=== PATIENT | female | born 1980 | race Caucasian/White ===

== ENCOUNTER 2020-02-16 09:01 | Outpatient (CLI) | payer OTHER, SELFPAY ==
--- NOTE | ~2020-02-16 | MM_ITS ---
EXAMINATION: MM screening [facility] BI w ammy HISTORY: Screening mammogram TECHNIQUE: Craniocaudal and mediolateral oblique 3-D tomosynthesis images were obtained and synthetic 2-D images were generated. CAD analysis was submitted and interpreted. COMPARISON: 11/27/2018 bilateral digital screening mammogram BREAST PARENCHYMAL COMPOSITION: The breasts are almost entirely fatty. FINDINGS: There is no evidence of suspicious mass, calcification, or architectural distortion to sugg est malignancy in either breast. There has been no suspicious interval change. IMPRESSION: 1. No mammographic evidence of malignancy. 2. Recommend routine screening mammography in one year. BI-RADS Category 1: Negative Reviewed, dictated and finalized at location A.
== END 2020-02-16 09:02 | disposition home or self-care (01) ==
LOC: ANHIMG 09:05
PROVIDERS: PCP Family Medicine; Visit Provider Obstetrics & Gynecology
DX: Z12.31 Encounter for screening mammogram for malignant neoplasm of breast (principal)
CPT/HCPCS: 77063; 77067

== ENCOUNTER 2021-05-10 15:42 | Outpatient (CLI) | payer OTHER, BC, SELFPAY ==
--- NOTE | ~2021-05-10 | MM_ITS ---
EXAMINATION: MM screening [facility] BI w ammy HISTORY: Screening TECHNIQUE: Craniocaudal and mediolateral oblique 3-D tomosynthesis images were obtained and synthetic 2-D images were generated. CAD analysis was submitted and interpreted. COMPARISON: Comparison to multiple prior studies sequentially, with oldest reviewed study dated 11/27. BREAST PARENCHYMAL COMPOSITION: There are scattered areas of fibroglandular density. FINDINGS: There is no evidence of suspicious mass, calcification, or architectural distortion to sugg est malignancy in either breast. There has been no suspicious interval change. IMPRESSION: 1. No mammographic evidence of malignancy. 2. Recommend routine screening mammography in one year. BI-RADS Category 1: Negative Reviewed, dictated and finalized at location A.
== END 2021-05-10 15:43 | disposition home or self-care (01) ==
PROVIDERS: PCP Family Medicine; Visit Provider Obstetrics & Gynecology
DX: Z12.31 Encounter for screening mammogram for malignant neoplasm of breast (principal)
CPT/HCPCS: 77063; 77067

== ENCOUNTER 2022-08-12 08:50 | Outpatient (CLI) | payer OTHER, SELFPAY ==
--- NOTE | ~2022-08-12 | MM_ITS ---
EXAMINATION: MM screening [facility] BI w ammy HISTORY: Screening mammogram TECHNIQUE: Craniocaudal and mediolateral oblique 3-D tomosynthesis images were obtained and synthetic 2-D images were generated. CAD analysis was submitted and interpreted. COMPARISON: 05/10/2021, 02/16/2020, 11/27/2018 BREAST PARENCHYMAL COMPOSITION: The breasts are almost entirely fatty. FINDINGS: There is no suspicious mass, calcification, or architectural distortion to suggest malignan cy in either breast. There has been no suspicious interval change. IMPRESSION: 1. No mammographic evidence of malignancy. 2. Recommend routine screening mammography in one year. BI-RADS Category 1: Negative Reviewed, dictated and finalized at location A.
== END 2022-08-12 08:51 | disposition home or self-care (01) ==
LOC: ANHIMG 08:51
PROVIDERS: PCP Family Medicine; Visit Provider Obstetrics & Gynecology
DX: Z12.31 Encounter for screening mammogram for malignant neoplasm of breast (principal)
CPT/HCPCS: 77063; 77067

== ENCOUNTER 2023-12-05 14:22 | Outpatient (CLI) | payer OTHER, SELFPAY ==
--- NOTE | ~2023-12-05 | MM_ITS ---
EXAMINATION: MM screening [facility] BI w ammy HISTORY: Screening mammogram TECHNIQUE: Craniocaudal and mediolateral oblique 3-D tomosynthesis images were obtained and synthetic 2-D images were generated. CAD analysis was submitted and interpreted. COMPARISON: 08/12/2022, 05/10/2021, 02/16/2020 BREAST PARENCHYMAL COMPOSITION: The breasts are almost entirely fatty. FINDINGS: No suspicious mass, calcification, or architectural distortion are identified in either hema ast to suggest malignancy. There has been no suspicious interval change. IMPRESSION: 1. No mammographic evidence of malignancy. 2. Recommend routine screening mammography in one year. BI-RADS Category 1: Negative Reviewed, dictated and finalized at location A. [employer]
== END 2023-12-05 14:23 | disposition home or self-care (01) ==
LOC: ANHIMG 14:40
PROVIDERS: PCP Family Medicine; Visit Provider Obstetrics & Gynecology
DX: Z12.31 Encounter for screening mammogram for malignant neoplasm of breast (principal)
CPT/HCPCS: 77063; 77067

== ENCOUNTER 2024-12-28 14:59 | Outpatient (CLI) | payer OTHER, SELFPAY ==
--- NOTE | ~2024-12-28 | MM_ITS ---
EXAMINATION: MM screening anca BI w ammy HISTORY: Screening TECHNIQUE: Craniocaudal and mediolateral oblique 3-D tomosynthesis images were obtained and synthetic 2-D images were generated. CAD analysis was submitted and interpreted. COMPARISON: Comparison to multiple prior studies sequentially, with oldest reviewed study dated 11/27. BREAST PARENCHYMAL COMPOSITION: Not Dense: The breasts are almost entirely fatty. FINDINGS: There is no evidence of suspicious mass, calcification, or architectural distortion to sugg est malignancy in either breast. There has been no suspicious interval change. IMPRESSION: 1. No mammographic evidence of malignancy. 2. Recommend routine screening mammography in one year. BI-RADS Category 1: Negative Reviewed, dictated and finalized at location B. [employer]
--- OUTSIDE RECORDS SUMMARY | 2024-12-28 15:04 | XMS_ITS | Data Portability ---
Author Organization [facility] MiName Nm in Office Address [address] [place] [address] Assessment Encounter Date Assessment Date Assessment LastModified by Organization Details LastModified Time 10/26/2024 10/26/2024 I spent 35 minutes of [id number] counselling and care coordination time with the patient. This includes reviewing medical records (medical, surgical, family and social history); updating medication and allergy information in the electronic health record; and ordering labs, medications, and education materials to continue patient care. [email or web address] Not available 10/26/2024 09:55:54 11/30/2024 11/30/2024 I spent 19 minutes of xozh-it-iuwu counselling and care coordination time with the patient. This includes reviewing medical records (medical, surgical, family and social history); updating medication and allergy information in the electronic health record; and ordering labs, medications, and education materials to continue patient care. [email or web address] Not available 11/25/2024 14:57:46 Plan of Treatment Reminders Order Date Submit Date Provider Last Modified By Organization Details Last Modified Time Details Appointments [id number] 2024 09:00A Usama FREDERICK NP Not available Not available Not available Lab None recorded. Referral None recorded. Procedures None recorded. Surgeries None recorded. Imaging None recorded. Medication Orders Bundle B: 0.5 mL/week - [facility] 2024 025 [facility] (Clinic Pay Unmonitored Fax), [id number] [place] [address], [id number], 11/30/2024 11:55:20 Zepbound 2.5 mg/0.5 mL subcutane ous pen injector 2023 025 [id number], [address], [place], [place], [id number], 11/30/2024 11:31:38 Patient TargetsNo targets recorded. Patient Instructions Encounter Date Encounter Id Patient Instructions Last Modified By Organization Details Last Modified Time 10/26/2024 [id number] [facility] FAQs Not avail able 10/26/2024 12:22:14 Any requested follow-up visits are listed below in the Plan of Care section. Go directly to the [facility] mutuel clerk at [email or web address] to book a time. [email or web address] Not available 10/26/2024 09:51:43 It was a pleasur e to meet you and begin to collaborate on your care! Looking forward to seeing you again soon - and please do not hesitate to reach out with any questions. We focused on these items today: 1. WEIGHT MEDICATION Please see changes to your medication plan below LABS Upload labs upon availability RESOURCES Here is some more information about what we discussed: It was a pleasure to meet with you today! We discussed your health concerns related to your weight and hypertension. -------- Your Care Plan -------- Together, we decided that you would: - Consider the option of once-weekly injectables for weight loss. These medications are known to be quite successful in the detention and can help you lose a significant amount of weight. However, they can cause side effects such as nausea, upset stomach, diarrhea, constipation, and occasionally reflux. We will check with your insurance to see if they cover these medications. If not, there is an option to get a compounded version of the medication from a pharmacy in [place] called [facility]. The first month of this medication out of pocket is about $180 with shipping, and the second and third months are around $250 out of pocket. - Consider the option of Metformin for weight loss. Metformin is used for pre-diabetes, diabetes, insulin resistance, and it's used off-label for weight loss. We would start with the lowest dose of 500mg once a day for the first week. If you tolerate that, you can increase it to twice a day before meals. The most common side effect of Metformin is stomach upset or nausea. Metformin works by improving how your body responds to insulin, reducing the amount of glucose your liver releases, and decreasing insulin resistance. - If you decide to take Metformin, it is also suggested that you take a vitamin B12 supplement. - Scheduled a follow-up appointment for November 30 at 10:30 AM to discuss how the chosen treatment is working for you and to make any necessary adjustments. Please carefully review the care plan we have decided upon, specific information regarding your medication, and important details about your treatment detailed above. Thank you for trusting us with your care! What is Metformin? Metformin works by improving how your body responds to insulin, reducing the amount of glucose your liver releases, and decreasing insulin resistance. Vitamin B12 Supplementation Metformin can lower the absorption of vitamin B12 in your small intestines. This can sometimes, but not always, lead to vitamin B12 deficiency We recommend including plenty of foods rich in vitamin B12 in your diet, such as eggs, beef, salmon, chicken, and nutritional yeast; and/or taking supplemental B12 may help to prevent a deficiency (especially if you're vegetarian, vegan, or predominantly plant-based, as B12 is most commonly found in animal products). Side effects Gastrointestinal Issues: The most common side effects include a metallic taste, mild nausea, abdominal discomfort, and diarrhea. These are usually mild and can be minimized by taking metformin with food. A rare but serious condition called metformin-associated lactic acidosis can occur, especially if you re severely dehydrated. Symptoms include stomach discomfort, decreased appetite, rapid breathing, muscle pain, and unusual tiredness. Staying hydrated is crucial, and you should stop taking metformin if you experience severe vomiting or diarrhea. Avoid binge drinking as it can increase the risk of lactic acidosis. Tips for Taking Semaglutide Note: WEGOVY and OZEMPIC are brand names for SEMAGLUTIDE -You can take Semaglutide with or without food -If you need to change the day of the week, you may do so as long as your last dose of semaglutide was given 2 or more days before -If you take too much semaglutide, you may have severe nausea, severe vomiting, and severe low blood sugar. This is why it is critical to follow the dosing regimen prescribed by your [facility] Expert. What to Do if You Miss a Dose -If you miss a dose, and the next scheduled dose is MORE than 2 days away (48 hours), take the missed dose as soon as possible -If you miss a dose, and the next scheduled dose is LESS than 2 days away (48 hours), do not administer the dose. Take your next dose on the regularly scheduled day -If you miss your semaglutide dose for more than 2 weeks, take the next dose on the regularly scheduled day or message your [facility] Expert to talk about how to restart your treatment The most common side effects may include: nausea, diarrhea, constipation, headache, abdominal pain, tiredness, upset stomach, dizziness, feeling bloated, belching, gas, stomach flu, heartburn. The most common side effect is nausea. It tends to go away on its own, but here are some tips to help you manage nausea associated with semaglutide: -Eat bland, low-fat foods, like crackers, toast, and rice -Eat foods that contain water, like soups and gelatin -Avoid lying down after you eat -Go outdoors for fresh air -Eat more slowly Important Safety Information Semaglutide/Wegovy/O zempic may cause serious side effects, including: -Inflammation of your pancreas (pancreatitis). Stop using this medication and call your [facility] healthcare provider right away if you have severe pain in your stomach area (abdomen) that will not go away, with or without vomiting. You may feel the pain from your abdomen to your back. -Gallbladder problems. May cause gallbladder problems, including gallstones. Some gallstones may need surgery. Seek urgent medical care if you have symptoms, such as pain in your upper stomach (abdomen), fever, yellowing of the skin or eyes (jaundice), or yaniv-colored stools. -Increased risk of low blood sugar (hypoglycemia) in patients with type 2 diabetes, especially those who also take medicines for type 2 diabetes such as sulfonylureas or insulin. This can be both a serious and common side effect. Talk to your [facility] healthcare provider about how to recognize and treat low blood sugar and check your blood sugar before you start and while you take this medication. Signs and symptoms of low blood sugar may include dizziness or light-headedness, blurred vision, anxiety, irritability or mood changes, sweating, slurred speech, hunger, confusion or drowsiness, shakiness, weakness, headache, fast heartbeat, or feeling jittery. -Kidney problems (kidney failure). In people who have kidney problems, diarrhea, nausea, and vomiting may cause a loss of fluids (dehydration) which may cause kidney problems to get worse. It is important for you to drink fluids to help reduce your chance of dehydration. -Serious allergic reactions. Stop using this medication and get medical help right away, if you have any symptoms of a serious allergic reaction, including swelling of your face, lips, tongue, or throat; problems breathing or swallowing; severe rash or itching; fainting or feeling dizzy; or very rapid heartbeat. -Change in vision in patients with type 2 diabetes. Tell your [facility] provider or seek immediate medical attention if you have changes in vision during treatment while on this medication. -Increased heart rate. This medication can increase your heart rate while you are at rest. Tell your [facility] healthcare provider if you feel your heart racing or pounding in your chest and it lasts for several minutes. -Depression or thoughts of suicide. You should pay attention to any mental changes, especially sudden changes in your mood, behaviors, thoughts, or feelings. Call your [facility] healthcare provider right away if you have any mental changes that are new, worse or worry you. If you EVER have any thoughts of self harm or thoughts of harming someone else, please go to the closest emergency department or call 911. You can also call / text 985 [email or web address] org/?utm_source=atif bynum&utm_medium=web&ut m_campaign=onebox -: May cause harm. If you become , discontinue semaglutide. Discontinue semaglutide at least 2 months before a planned . While on semaglutide please use a control method to prevent if needed. Tips for Taking Tirzepatide Note: MOUNJARO and ZEPBOUND are brand names for TIRZEPATIDE -You can take Tirzepatide(Mounjaro /Zepbound) with or without food -If you need to change the day of the week, you may do so as long as your last dose was given 2 or more days before -If you take too much tirzepatide, you may have severe nausea, severe vomiting, and severe low blood sugar. This is why it is critical to follow the dosing regimen prescribed by your [facility] Weight Loss Expert. What to Do if You Miss a Dose -If you miss a dose, and the next scheduled dose is MORE than 2 days away (48 hours), take the missed dose as soon as possible -If you miss a dose, and the next scheduled dose is LESS than 2 days away (48 hours), do not administer the dose. Take your next dose on the regularly scheduled day -If you miss your tirzepatide dose for more than 2 weeks, take the next dose on the regularly scheduled day or message your [facility] Expert to talk about how to restart your treatment The most common side effects may include: nausea, diarrhea, constipation, headache, abdominal pain, tiredness, upset stomach, dizziness, feeling bloated, belching, gas, stomach flu, heartburn. The most common side effect is nausea. It tends to go away on its own, but here are some tips to help you manage nausea associated with this medication: -Eat bland, low-fat foods, like crackers, toast, and rice -Eat foods that contain water, like soups and gelatin -Avoid lying down after you eat -Go outdoors for fresh air -Eat more slowly Important Safety Information Tirzepatide/Mounjaro /Zepbound may cause serious side effects, including: -Inflammation of your pancreas (pancreatitis). Stop using this medication and call your [facility] healthcare provider right away if you have severe pain in your stomach area (abdomen) that will not go away, with or without vomiting. You may feel the pain from your abdomen to your back. -Gallbladder problems. May cause gallbladder problems, including gallstones. Some gallstones may need surgery. Call your [facility] provider if you have symptoms, such as pain in your upper stomach (abdomen), fever, yellowing of the skin or eyes (jaundice), or yaniv-colored stools. -Increased risk of low blood sugar (hypoglycemia) in patients with type 2 diabetes, especially those who also take medicines for type 2 diabetes such as sulfonylureas or insulin. This can be both a serious and common side effect. Talk to your [facility] healthcare provider about how to recognize and treat low blood sugar and check your blood sugar before you start and while you take this medication. Signs and symptoms of low blood sugar may include dizziness or light-headedness, blurred vision, anxiety, irritability or mood changes, sweating, slurred speech, hunger, confusion or drowsiness, shakiness, weakness, headache, fast heartbeat, or feeling jittery. -Kidney problems (kidney failure). In people who have kidney problems, diarrhea, nausea, and vomiting may cause a loss of fluids (dehydration) which may cause kidney problems to get worse. It is important for you to drink fluids to help reduce your chance of dehydration. -Serious allergic reactions. Stop using this medication and get medical help right away, if you have any symptoms of a serious allergic reaction, including swelling of your face, lips, tongue, or throat; problems breathing or swallowing; severe rash or itching; fainting or feeling dizzy; or very rapid heartbeat. -Change in vision in patients with type 2 diabetes. Tell your [facility] healthcare provider if you have changes in vision during treatment while on this medication. -Increased heart rate. This medication can increase your heart rate while you are at rest. Tell your [facility] provider if you feel your heart racing or pounding in your chest and it lasts for several minutes. -Depression or thoughts of suicide. You should pay attention to any mental changes, especially sudden changes in your mood, behaviors, thoughts, or feelings. Call your [facility] healthcare provider right away if you have any mental changes that are new, worse or worry you. If you EVER have any thoughts of self harm or thoughts of harming someone else, please go to the closest emergency department or call 911. You can also call / text [phone] [email or web address] org/?utm_source=atif bynum&utm_medium=web&ut m_campaign=onebox Diet: Timing: Try intermittent fasting, eating during daylight hours over an 8 hour window. For example, eat between 10 a.m and 6 p.m. Try to finish your last meal at least 3-4 hours before bedtime to fully digest. Avoid alcohol and sugary sweets close to bedtime as it can lead to sleep disruption. Helpful food choices: - Choose complex carbohydrates over simple carbs to help avoid rapid spikes in blood sugar that may contribute to feelings of anxiety, as well as weight gain and metabolic disease. - A plant-based diet high in vegetables and fruits can help maintain healthy weight and assist in management of menopausal symptoms. - Aim to eat 20-25 grams of protein with each meal. - Twice weekly consume fatty fish like salmon or sardines. These types of fish contain healthy omega-3 fatty acids, which can provide benefits to mood, reduce inflammation, and improve brain and cardiovascular health. - Try to avoid refined sugars and high-glycemic foods to help balance mood and improve sleep. - Avoid caffeine, spicy foods, hot drinks, alcohol and sugar, which are known triggers for hot flashes and night sweats. Exercise: - Aim for regular exercise with 30 minutes of moderate intensity activity on at least 5 days of the week. - Incorporate weight training into your exercise routine to increase strength, improve metabolism, and maintain bone health. - Avoid exercise close to bedtime so it does not interfere with sleep. For more information regarding common questions about weight in midlife, watch this short video from our Director Process Improvement, . You will need to copy the following link into your browser to access the video: [email or web address] Of course, if you have further questions after watching, please reach out and I will be happy to support you. Schedule a followup visit through the [facility] mutuel clerk at [email or web address] Not available 10/26/2024 12:22:13 11/30/2024 [id number] The [facility] FAQs [email or web address] Not avail able 11/30/2024 11:40:43 Any requested follow-up visits are listed below in the Plan of Care section. Go directly to the [facility] mutuel clerk at [email or web address] to book a time. [email or web address] Not available 11/25/2024 14:57:20 It was great to see you again! As always, do not hesitate to reach out with any questions. We focused on these items today: 1. WEIGHT MEDICATION Please see changes to your medication plan below LABS Upload labs upon availability RESOURCES Here is some more information about what we discussed: It was a pleasure to meet with you today! We discussed your health concerns related to weight loss and your current treatment with semaglutide compound. -------- Your Care Plan -------- Together, we decided that you would: - Continue taking semaglutide at the current dosage of 25 units. You have reported no significant side effects and have seen some progress with your weight loss goals. - Consider increasing the dosage to 50 units in the future if you feel it's necessary. This decision is entirely up to you and can be discussed further in our next appointment. - Aim for a high protein, high fiber diet. This type of diet can help amplify your success with weight loss. - Increase your activity level. Regular physical activity can help boost your weight loss efforts. - Scheduled a follow-up appointment for January 04 at 11 AM Central Time. During this appointment, we can discuss your progress, any potential side effects, and whether you'd like to adjust your dosage. - Share any recent blood work you have had done. This will help us monitor your overall health and ensure the medication is working effectively. Please remember that weight loss is a gradual process and it's important to be patient with yourself. It's great to hear that you're feeling more comfortable and able to breathe easier. These are positive signs that you're making progress towards your goal of being under 200 pounds. If you experience any severe side effects or if your symptoms worsen, please seek immediate medical attention. If you have any questions or concerns about your treatment, don't hesitate to reach out to us. Please carefully review the care plan we have decided upon, specific information regarding your medication, and important details about your treatment detailed above. Thank you for trusting us with your care! For more information regarding common questions about weight in midlife, watch this short video from our Director Process Improvement, . You will need to copy the following link into your browser to access the video: [email or web address] Of course, if you have further questions after watching, please reach out and I will be happy to support you. Schedule a followup visit through the [facility] mutuel clerk at [email or web address] Not available 11/30/2024 11:40:42 Reason for Referral None Reported. Problems Name Problem SNOMED Code Status Onset Date Resolution Date Notes Provider Name and Address Organization Details Recorded Time Obesity 183853574 Active 024 [place], [address] , [facility] 4 09:51:47 Abnormal weight gain 239821647 Active 024 PAOLO CARO [place] [id number] , [facility] 4 13:27:07 Fatigue 33840913 Active 025 PAOLO CARO [place] [id number] , [facility] 5 14:57:23 Problem Notes None recorded. Procedures Surgical History Date Name Laterality Status Provider Name and Address Organization Details Recorded Time 4 Date of Last Colonoscopy completed PAOLO CARO [place] [id number], [facility] 10/26/2024 12:02:47 4 Date of Last Mammogram completed PAOLO CARO [place] [id number], [facility] 10/26/2024 12:02:47 2 Date of Last Pap Smear completed PAOLO CARO [facility] , [facility] 10/26/2024 12:02:47 Imaging Results None recorded. Procedure Notes None recorded. Medical Equipment None Reported. Allergies No known drug allergies Medications Name Sig Start Date Stop Date Status Note LastModified by Organization Details LastModified Time Bundle B: 0.5 mL/week - [facility] Inject 50 units (0.5mg) subcutan eously once weekly. 2024 active Not Available Not Available Not Avai lable Bundle A: 0.25 mL/week - [facility] Inject 25 units (0.25mg) subcutan eously once weekly. 12/19/ 2024 active Not Available Not Available Not Avai lable Bundle B: 0.5 mL/week - [facility] Inject 50 units (0.5mg) subcutan eously once weekly. 2024 active Not Available Not Available Not Avai lable Bundle A: 0.25 mL/week - [facility] Inject 25 units (0.25mg) subcutan eously once weekly. 2024 active Not Available Not Available Not Avai lable benzonatat e 100 mg capsule TAKE 1 TO 2 CAPSULES BY MOUTH THREE TIMES DAILY NEEDED FOR COUGH. MAXIMUM 6 CAPSULE IN 24 HOURS 11/30 completed Not Available Not Available Not Available fluticason e propionate 50 mcg/actuat ion nasal spray,susp ension SHAKE LIQUID AND USE 1 SPRAY IN EACH NOSTRIL TWICE DAILY DIRECTED active Not Available Not Available No t Available lisinopril 2.5 mg tablet active Not Available Not Available Not Available BinaxNOW COVID-19 Ag Self Test kit USE DIRECTED 11/30 completed Not Available Not Available Not Available Zepbound 2.5 mg/0.5 mL subcutaneo us pen injector ADMINIST ER 2.5 MG UNDER THE SKIN EVERY WEEK active cmm rea: [id number] W Geisen Not Available Not Available Not Available Vitals Date Recorded Body height Body mass index (BMI) Body weight Systolic blood pressure Diastolic blood pressure Provider Name and Address Organization Details Last Updated DateTime 10/26/2024 165.1 cm 36.4 kg/m2 84544.73 g 120 mm[Hg] 80 mm[Hg] [place] [address] [place], [address], [place] [facility] 12:04:22 Social History Question Answer Notes LastModified by Organizat ion Details LastModified Time Tobacco Smoking [place] [address] [place], [address] 10/26/2024 09:52:33 What Is Your Level Of Alcohol Consumption? Occasional Information not available 10/26/2024 Sex: Female Functional Status None recorded. Mental Status None recorded. Family History Relationship Description Onset Age of this Age Resolved Age Notes LastModified by Organization Details LastModified Time Mother Heart disease [email or web address] Not available 2023 12:02:28 Maternal Grandfather Heart disease [email or web address] Not available 2023 12:02:28 Father Ischemic stroke [email or web address] Not available 2023 12:02:28 Medical History Condition Response Hypertension Y Gynecological History Statement/Question Response Date of Last Pap Smear 08/17/2022 Date of Last Colonoscopy 07/25/2024 Date of Last Mammogram 12/06/2023 Approximate Date of LMP 09/14/2024 Hormone Replacement Therapy No Obstetrics History GPAL:G 2 P 0 0 0 2 Type Value Living 2 Total 2 Past Encounters Encounter ID Performer Location Encounter Start Date Encounter Closed Date Diagnosis/Indication Diagnosis SNOMED-CT Code Diagnosis ICD10 Code Diagnosis Note [id number] Myesha Palumbo MD Main Office [address] [place] [address] 10/26/2024 11:08:13 10/27/2024 16:19:50 Obesity [id number] R63.5 - Discussed various treatment options for weight management , including once-weekl y injectable s, bupropion (Wellbutri n), and metformin. - Educated on the side effects of once-weekl y injectable s, including nausea, upset stomach, diarrhea, constipati on, and reflux.- Explained the mechanism of action of metformin, including improving insulin response, reducing glucose release from the liver, and decreasing insulin resistance .- Submitted for [employer] to see if the insurance will provide feedback regarding coverage- [facility]30 AM to evaluate the effectiven ess and tolerance of metformin. - Instructed to check the patient portal for insurance feedback on coverage for once-weekl y injectable s and to call the insurance company for confirmati on. [facility] cation given [id number] Z71.9 - Provided detailed education on the benefits and risks of various weight management medication s, including once-weekl y injectable s, bupropion, and metformin. - Discussed the importance of lifestyle modificati ons in conjunctio n with medication for effective weight loss.- Explained the potential side effects of metformin, including stomach upset and nausea.- Informed about the option of obtaining a compounded version of the once-weekl y injectable from [facility] if insurance does not cover one of the GLP-1s.- Educated on the importance of monitoring for side effects and reporting any adverse reactions. - Ensured patient understand ing of the treatment plan and agreement with the proposed approach. History of hypertension [id number] Z86.79 - Is currently taking Lisinopril , BP is well controlled [id number] Myesha Palumbo MD Main Office [address] [place] [address] 11/30/2024 10:41:56 12/01/2024 04:08:54 Obesity [id number] E66.9 - Patient currently on semaglutid e 0.25 mg for weight management .- No significan t side effects reported; patient tolerating medication well.- Current weight approximat elena 213-215 lbs, down from 219 lbs in September.- Discussed the option to increase the dose to 0.5 mg for enhanced efficacy.- Ordered semaglutid e 0.5 mg for the next dosing cycle.- Advised patient to continue monitoring weight and report any adverse effects.- Encouraged increased physical activity to aid in weight loss.- Follow-up scheduled for January 04 at 11 AM Central. [facility] Rx Compounded Semaglutid e [email or web address] Here are the next steps regarding your [facility] CustomRx prescripti on: The day after your visit you will receive an email from [employer] to purchase your medication s. We recommend adding this email to your contact list to prevent it from being filtered by spam/junk filters. If you have any questions about how to purchase your order, please use the [employer] email address. Please ensure you click the link in the email to confirm the products you'd like. Once you have verified you'd like to receive this product from that email and completed the purchase, you will receive a tracking number via [employer] and your product is on its way to you! If you have any questions at any time, please reach out to us here at [facility], we are happy to help. [facility] cation given [id number] Z71.9 - Educated patient on the importance of a high-prote in, high-fiber diet to support weight loss.- Discussed the benefits and potential side effects of semaglutid e.- Advised patient to upload any recent blood work for review.- Reinforced the importance of regular follow-up appointmen ts to monitor progress and adjust treatment as necessary. Health Concerns Section Related Observation LastModified by Organization Detai ls LastModified Time None Recorded Concern Status LastModified by Organization Details LastModified Time None Recorded Advance Directives Directive None Recorded Payers Encounter Date Sequence Insurance Name Policy Number Policy Garnett Covered Member ID Garnett Member ID Guarantor Name 10/26/2024 1 [facility] [id number] Ortega L Geisen [id number] Ortega Geisen 11/30/2024 1 [facility] [id number] Ortega L Geisen [id number] Ortega Geisen Notes Date Note Type Note Provider Name and Address Organization Details Recorded Time 4 text/html Patient is a 44 year old female presenting for a telehealth consultation to discuss weight management, hypertension, and potential medication options for weight loss. Weight Management:- Patient has been struggling with weight for her whole life.- Current weight is 219 lbs, with a goal weight of 175 lbs, but would be happy to reach 190 lbs.- No recent changes in diet or exercise habits were discussed. Hypertension:- Patient has a history of hypertension, which started during her 19 years ago.- Blood pressure has been stable, typically around 120/80.- Patient is currently taking lisinopril 2.5 mg for hypertension management. Medication for Weight Loss:- Patient is considering different options for weight loss medications, including once-weekly injectables, metformin, and bupropion.- She is interested in checking if her insurance covers the once-weekly injectables.- If not covered by insurance, she is considering either the compounded version of the medication or metformin.- Patient inquired about the dosage for metformin, which would start at 500 mg once a day for the first week, then potentially increase to twice a day before meals. Screenings and Lab Work:- Patient had a colonoscopy in July 2024, a Pap smear in August 2022 and September 2024, and a mammogram in November 2023. All results were normal.- Recent blood work in 2023 was also normal.- No personal history of thyroid cancer, gallbladder disease, pancreatitis, or eating disorders. Other Medical History:- Patient has twins who are 19 years old.- No other medical conditions were discussed. PMHx:- Hypertension (Diagnosed during , 19 years ago) PSHx:- Colonoscopy (July,) Current Meds:- Lisinopril 2.5 mg daily Allergies:- NKDA Social Hx:- Number of children: 2 (twins, 19 years old)- Occupation: Teacher Virtual Visit AttestationModality: VideoProvider Location: Home Patient Location: Home Patient State: {{AL AK AZ AR CA CO CT DE DC FL GA HI ID IL* IN IA K S [place] ADITHYA ALVA MD ME NY MN MS MO MT NE NV NH NJ NM NY NC ND OH OK OR PA RI SC SD T N TX UT VT VA WA WV WI WY} }WEIGHT INTAKE - FIRST VISITWeight and body changes symptom severity: ModerateHeight: 65Weight: 219Goal Weight: 175Patient has tried the following weight loss strategies: Diets, Supplements, Programs (e.g., Noom, Weight Watchers)Additional details below for the weight loss strategies the patient tried:Diets: low carbPrescription Medications: UnknownSupplements: OlliWeight Loss Programs: Weight WatchersSurgeries: UnknownIs the patient currently trying to get or would like to be in the near future? No PMHPAST MEDICAL HISTORYHigh blood pressureNo breast cancerAny other cancers: None; Dates: UnknownBONE HEALTHBMD:No past fracturesNo steroid useShe has been struggling with weight management for {{ whole life#}} and is seeking options for medications for weight reduction and improvement of overall health. Highest BMI: {{}}219Current weight: {{ 219#}} BMI:Goal weight: {{ 175#}} BMI:Last time at goal weight: Her comorbidities include {{ HTN#}}. Her highest HbA1c was {{ pending#}}. She has previously tried: (CHARGE MANAGER: include medication, duration, outcome for Prior Auths) Her personal history does not include:thyroid cancergallbladder diseasepancreatitisAn eating disorder including anorexia, bulimia, orthorexia, binge or others. Her family history does not include:thyroid cancer Her most recent blood work was on {{ 2023#}} and revealed: WNL CBCCMPFasting blood nnlyfKcM1fPtaxhtGRP Vitamin DVitamin O41Qirfm labs: [place] [address], [place], [address], [place] [employer] 11/28/2024 12:15:42 5 text/html Patient is a 44 year old female presenting for a follow-up visit to discuss weight management and the use of semaglutide. Weight Management:- Patient has been using semaglutide for weight loss, with the initial dosing of 0.25 mg.- She reports no significant side effects from the medication.- She does not recall her exact weight prior to starting the medication, but estimates it was around 219 lbs in September.- Her goal is to be under 200 lbs, as she felt uncomfortable at her previous weight.- She reports feeling more comfortable and able to breathe easier since starting the medication.- She is currently at 213-215 lbs and is considering increasing her activity level to further aid in weight loss.- She is considering increasing the dosage of semaglutide, but is unsure of the other dosage options.- She recently received another refill of the 0.25 mg dosage.- She is aiming for a high protein, high fiber diet to aid in her weight loss. Recent Lab Work:- Patient mentions having recent blood work done in 2023, plans to upload results.- She has not felt any adverse effects from the medication that would cause her to stop taking it. Next Follow-Up:- A follow-up appointment has been scheduled for January 04 at 11 AM Central. PMHx:- Obesity Current Meds:- Semaglutide 25 units Social Hx:- Physical activity: Plans to increase activity level Virtual Visit AttestationModality: VideoProvider Location: Home Patient Location: Home Patient State: {{AL AK AZ AR CA CO CT DE DC FL GA HI ID IL* IN IA K S JESSICA HAJI MA, MD ME NY MN MS MO MT NE NV NH NJ NM NY NC ND OH OK OR PA RI SC SD T N TX UT VT VA WA WV WI WY} } Highest BMI: {{}}219Starting weight: {{ 219+#}} BMI: {{}}Current weight: {{ 213#}} BMI: {{}}Goal weight: {{ 175#}} Review of nutrition, exercise, sleep, and stress includes: [place] [address], [place], [address], [employer] 12/13/2024 16:55:29 OBGyn Episode No OBEpisode recorded.
== END 2024-12-28 15:00 | disposition home or self-care (01) ==
PROVIDERS: PCP Family Medicine; Visit Provider Obstetrics & Gynecology
DX: Z12.31 Encounter for screening mammogram for malignant neoplasm of breast (principal)
CPT/HCPCS: 77063; 77067